=== PATIENT | female | born 1990 | race Native Hawaiian/Other Pacific Islander ===

== ENCOUNTER 2016-09-30 20:39 | Emergency (ER) | payer OTHER ==
[~2016-09-30] VITALS: Ht 170.2 cm; Wt 93.0 kg
[~2016-09-30 20:39] MED LIST: DULERA1 AE1 IN; FLUT0.05 NAS; PROAIR HFA IN
[2016-09-30 21:25] VITALS: BP 116/86; TEMP 98.1
== END 2016-09-30 21:25 | disposition home or self-care (01) ==
LOC: ED 20:39
DX: L50.8 Other urticaria (principal)
CPT/HCPCS: 36415; 96374; 99284; J1100

== ENCOUNTER 2016-10-01 15:28 | Emergency (ER) | payer OTHER ==
[~2016-10-01] VITALS: Ht 170.2 cm; Wt 93.0 kg
[2016-10-01 15:30] VITALS: TEMP 97.9
[2016-10-01 16:40] VITALS: BP 115/73
== END 2016-10-01 16:40 | disposition home or self-care (01) ==
LOC: ED 15:28
DX: T78.49XA Other allergy, initial encounter (principal)
CPT/HCPCS: 96372; 99283; J1200; J2930

== ENCOUNTER 2016-10-30 07:39 | Outpatient (CLI) | payer OTHER | END 2016-10-30 07:42 | disposition short-term general hospital (02) | LOC: AMB 07:39 | DX: R06.09 Other forms of dyspnea (principal); R09.89 Other specified symptoms and signs involving the circulatory and respiratory systems | CPT/HCPCS: A0425; A0427 ==

== ENCOUNTER 2016-10-30 07:45 | Emergency (ER) | payer OTHER ==
[~2016-10-30] VITALS: Ht 170.2 cm; Wt 95.3 kg
[2016-10-30 07:45] VITALS: TEMP 98.1
[2016-10-30 08:11] LABS: PLATELET COUNT 316 K/uL (152-353)
[2016-10-30 08:49] LABS: POTASSIUM 3.8 mmol/L (3.6-5.2); SODIUM 143 mmol/L (136-145)
== END 2016-10-30 09:54 | disposition home or self-care (01) ==
LOC: ED 07:45
DX: J20.9 Acute bronchitis, unspecified (principal); J45.901 Unspecified asthma with (acute) exacerbation
CPT/HCPCS: 80053; 81025; 85027; 96374; 99284; J2930

== ENCOUNTER 2016-11-14 21:34 | Emergency (ER) | payer OTHER ==
[~2016-11-14] VITALS: Ht 170.2 cm; Wt 96.2 kg
[2016-11-14 22:29] VITALS: BP 110/50; TEMP 98.2
== END 2016-11-14 22:30 | disposition home or self-care (01) ==
LOC: ED 21:34
DX: J45.901 Unspecified asthma with (acute) exacerbation (principal)
CPT/HCPCS: 96374; 99284; J2930

== ENCOUNTER → 2016-11-19 15:52 | Outpatient (CLI) | payer OTHER | END | disposition home or self-care (01) | LOC: AMB 15:52 | DX: Z04.3 Encounter for examination and observation following other accident (principal) ==

== ENCOUNTER 2018-04-25 13:20 | Outpatient (CLI) | payer OTHER | END 2018-04-25 22:46 | disposition home or self-care (01) | LOC: RAD 13:20 | DX: J45.901 Unspecified asthma with (acute) exacerbation (principal) ==

== ENCOUNTER 2020-06-19 12:17 | Outpatient (CLI) | payer OTHER | END 2020-06-19 20:18 | disposition home or self-care (01) | LOC: RAD 12:17 | PROVIDERS: ATTEND Nurse Practitioner Family | DX: J45.909 Unspecified asthma, uncomplicated (principal) ==